=== PATIENT | male | born 1985 | race Caucasian/White ===

== ENCOUNTER → 2021-08-02 | Outpatient (CLI) | payer BC | LOC: SLEEP 21:30 | DX: R06.81 Apnea, not elsewhere classified (principal) | CPT/HCPCS: 95810 ==

== ENCOUNTER 2021-12-05 12:01 | Emergency (ER) | payer BC ==
[2021-12-05 12:54] LABS: HEMOGLOBIN 15.7 gm/dl (14.0-17.5); RED BLOOD COUNT 4.89 M/UL (4.20-5.50); WHITE BLOOD COUNT 12.2 K/UL (4.5-11.0)
[2021-12-05 13:38] LABS: BUN/CREATININE RATIO 10 (0-10)
== END 2021-12-05 16:58 | disposition home or self-care (01) ==
LOC: ER1 12:01
PROVIDERS: Physician Assistant
DX: R56.9 Unspecified convulsions (principal); F17.210 Nicotine dependence, cigarettes, uncomplicated
CPT/HCPCS: 70140; 70450; 80053; 80307; 81001; 82550; 82553; 83735; 84484; 85025; 93005; 96374; 99285; G0480; J2405